=== PATIENT | male | born 1955 | race Caucasian/White ===

== ENCOUNTER 2019-10-26 12:08 | Day surgery (SDC) | payer OTHER, SELFPAY ==
[2019-10-13 14:02] VITALS: BMI 31.8
[2019-10-26] VITALS (11 sets, daily range): BP systolic 99–162; BP diastolic 66–93; PULSE 57–77; RESP 12–18; TEMP 36–36.9; O2SAT 92–96; BMI 31.8
--- NOTE | 2019-10-26 12:02 | DI.RAD.S_ITS ---
PROCEDURE: XR PELVIS 1-2V INDICATIONS: TOTAL RIGHT HIP TECHNIQUE: 1 view of the lower pelvis acquired. COMPARISON: None. FINDINGS: Bones: Patient is status post right total hip arthroplasty, with hardware components in expected positions. The hip joint appears congruent. The visualized bony structures appear intact. Degenerative changes of the left hip are also present. Soft tissues: Overlying postoperative changes are noted. No suspicious soft tissue densities. IMPRESSION: Status post right total hip arthroplasty without acute hardware complication. Expected postoperative changes. Dictated by: Lio Grace M.D. on 10/26/2019 at 17:15 Approved by: Lio Grace M.D. on 10/26/2019 at 17:15
[2019-10-26] MEDS: LACTATED RINGERS 1,000 ML 42 ML IV ×2 (12:41→15:41)
[2019-10-26] MEDS: PREGABALIN 75 MG CAPSULE PO (12:41)
[2019-10-26] MEDS: CELECOXIB 200 MG CAPSULE PO (12:41)
[2019-10-26] MEDS: ACETAMINOPHEN 325 MG TABLET 975 MG PO (12:41)
--- NOTE | 2019-10-26 14:02 | PM.PREOP ---
Pre-operative Note COVID-19 COVID-19 status: Negative Result date/Date tested (Pos, Neg/Pending): 10/24/19 Interval Note History & Physical reviewed/Exam performed by Physician: Yes Changes to H&P: No
[2019-10-26] MEDS: CEFAZOLIN 2 GM/100 ML FROZ.PIGGY IV ×2 (14:37→21:39)
[2019-10-26] MEDS: TRANEXAMIC ACID 1,000 MG VIAL 1000 MG IV ×2 (14:55→16:08)
--- NOTE | 2019-10-26 15:10 | SUR.OPER ---
Lateral on padded OR bed. Gel axillary roll. Arms secured on padded armboard with pillow supporting top arm. Padded hip positioner braces x4 - anterior and posterior chest and pelvis. Additional gel pad used anterior pelvis. Gel pad under bottom leg from knee to foot and secured with tape over sheet.
[2019-10-26] MEDS: KETOROLAC 30 MG/ML VIAL IV (15:18)
[2019-10-26] MEDS: ROPIVACAINE 0.5% PF 5 MG/ML 20ML VIAL 60 ML INJ (15:18)
[2019-10-26] MEDS: MORPHINE 4 MG/ML INJ INJ (15:18)
--- NOTE | 2019-10-26 16:23 | P.OP_ITS ---
Operative Date/Time/Diagnoses Date of procedure: 10/26/19 Time of procedure: 16:23 Pre-op diagnosis: Right hip degenerative joint disease Post-op diagnosis: same Procedure & Clinicians Procedure: Right total hip arthroplasty (CPT code 99051 with assistant hvac mechanic) Same procedure as scheduled: Yes Indications: Patient is an 64-year-old male with severe right hip DJD. The patient has pain with activities and at rest, limited ambulation and activity tolerance, difficulties with ADLs, and failure of conservative treatment. We have discussed the nature of condition, treatment options, risks and benefits, and patient elects to proceed with total hip arthroplasty and gives informed consent. Surgeon: Geoffrey Leonardo Cutter First: Domingo Kolb Anesthesia Type: General and Spinal Operative Notes Closure Type: primary Specimen(s): none sent Prosthetic devices, grafts, tissues, transplants, or devices: Acetabulum: Dacosta [employer] Nephew R3 acetabular component size 54 mm, 6.5 x 25 mm screw x2 Femoral component: Dacosta [employer] Nephew Anthology stem size 9 with high offset Femoral head: 36 mm + 4 Oxinium Estimated Blood Loss (mL): 200 Procedure in detail: After satisfaction induction of anesthetic, and administration of IV antibiotics, the patient was positioned in the lateral decubitus position with all bony prominences well padded and pelvic position secured using a hip sales and leasing consultant positioning device. Right hip and lower extremity prepped and draped in the usual sterile fashion, 1st dose of intravenous tranexamic acid was administered, then a longitudinal incision was created centered over the greater trochanter and carried sharply through the skin and subcutaneous tissues down to the fascia brandi which was divided longitudinally and retracted with a Charnley retractor. External rotators visualize, cut, tagged, and retracted posteriorly, then the capsule was cut in a T-type fashion with the corners tagged and retracted. Hip was dislocated and femoral neck cut made according to preoperative templating. Acetabular retractors then placed, and the acetabular labrum and osteophytes were excised. The acetabulum was then sequentially reamed to 53 mm with an excellent circumferential ream and fit with the trial. The trial component was removed and a permanent size 54 mm Dacosta [employer] Nephew R3 acetabular component was selected, positioned, and impacted with satisfactory position and fixation achieved. Because bone quality was not as high as expected as well as presence of a marginal subchondral cyst in the acetabulum additional fixation of the acetabulum was provided with 2 screws posterosuperior. Excellent fixation was achieved. Permanent liner was then inserted with the elevated lip directed posteriorly. Soft tissue then removed off the lateral femoral neck in the lateral neck was entered using a box osteotome. T-handled reamers placed down the canal followed by sequential broaching to 9 with the final broach left in place for trial reduction which demonstrated fair leg length, range of motion, and stability characteristics with a 36 mm +0 trial ball and standard offset neck. Another trial reduction was performed with a high offset neck Indy yielded and marked improved stability characteristics.. The trial and broach were removed, and a permanent size 9 high offset Dacosta [employer] Nephew Anthology stem was selected and inserted with excellent position and fixation achieved. Another trial reduction yielded the best characteristics with a +4 ball without undue lengthening, so the trial ball was exchanged for a permanent 36 mm + 4 Oxinium ball. The hip was irrigated and reduced and excellent leg length range of motion and stability characteristics were achieved and maintained. Periarticular tissues were infiltrated with ropivacaine, morphine, and Toradol. The hip was copiously irrigated, and the capsule repaired with #2 Ethibond, and the piriformis was repaired back to the greater trochanter with the same. Fascia brandi closed with interrupted #1 Ethibond sutures, and the subcutaneous tissues were closed in 2 layers of 0 Vicryl and 2 0 Vicryl. Skin was closed with mala and sterile dressings applied. Second dose of tranexamic acid was administered intravenously, and the anesthetic was terminated. Complications: none Post-operative Condition: stable Disposition: PACU Plan for aftercare: Patient will be admitted to the acute care [facility], and anticipate discharge on postop day 1 with follow-up in office in 10-14 days. Outpatient physical therapy will be arranged and patient will continue to observe posterior hip precautions. Patient will continue use of postoperative aspirin for DVT prophylaxis.
--- NOTE | 2019-10-26 16:36 | SUR.PHASEI ---
Pt thrashing in bed. Requires 4 RN's to keep him in bed, protect airway and drains
--- NOTE | 2019-10-26 16:46 | SUR.PHASEI ---
Pt awake, not so restless, unable to wiggle toes yet, pedal pulses good bilaterally. Denies pain-
--- NOTE | 2019-10-26 17:14 | SUR.PHASEI ---
Pt transferred in bed by 2 RN's to room 226, report at bedside to RN Traveler Eulalia, changed tegaderm and re taped IV before transit
[2019-10-26] MEDS: LACTATED RINGERS 1,000 ML 125 ML IV (17:53)
[2019-10-26] MEDS: ACETAMINOPHEN 325 MG TABLET 650 MG PO (20:46)
[2019-10-26] MEDS: DOCUSATE 100 MG CAPSULE PO (20:47)
--- NOTE | 2019-10-26 22:44 | PC.NURSE ---
2144 patient bladder scanned due to not voiding since receiving patient from PACU. Patient with 243 mL in bladder. No interventions performed due to post op orders. 2229 patient sat on side of bed, attempted to void in urinal. Patient still unable at this time. Patient states he does not go to the bathroom very often at home. Significant other, Leroy, present at bedside as well. Patient transferred to side of the bed well, with no distress. Patient still reporting no pain. Patient has not required pain medication at all throughout shift. Patient tolerating regular diet well. Surgical site remains clean, dry, intact with CHARLIE dressing in place.
[2019-10-26] MEDS: diphenhydrAMINE 25 MG TABLET 50 MG PO (22:56)
[2019-10-27 00:10] VITALS: BP 118/72; PULSE 74; RESP 16; TEMP 36.1; O2SAT 92
[2019-10-27] MEDS: HYDROCODONE/ACET 5/325 TABLET 2 TAB PO ×3 (01:12→12:42)
[2019-10-27] MEDS: LACTATED RINGERS 1,000 ML 125 ML IV (02:06)
[2019-10-27 04:40] VITALS: BP 125/76; PULSE 77; RESP 20; TEMP 36.8; O2SAT 93
[2019-10-27 05:07] LABS: Hematocrit 38.3 % (41-53); Hemoglobin 13.1 g/dL (13.5-17.5)
[2019-10-27] MEDS: CEFAZOLIN 2 GM/100 ML FROZ.PIGGY IV (06:09)
[2019-10-27 08:00] VITALS: BP 129/71; PULSE 75; RESP 18; TEMP 36.7; O2SAT 96
[2019-10-27] MEDS: ASPIRIN 325 MG TABLET PO (08:27)
[2019-10-27] MEDS: DOCUSATE 100 MG CAPSULE PO (08:27)
[2019-10-27] MEDS: ACETAMINOPHEN 325 MG TABLET 650 MG PO (08:27)
--- NOTE | 2019-10-27 10:15 | PT.IIE ---
Current Diagnoses Unilateral primary osteoarthritis, right hip (10/26/19) Surgery Performed Operation Date: 10/26/19 13:45 Actual Procedures p Total Hip Arthroplasty(Right) - Geoffrey Leonardo MD Surgical History (Last Updated 10/13/19 @ 14:14 by Izabella Maher RN) History of surgery (Acute ~1987) History of vasectomy (Acute ~1990) Hx of hernia repair (Acute) Hx of umbilical hernia repair (Acute) Medical History (Last Updated 10/13/19 @ 14:14 by Izabella Maher RN) CVA (cerebral vascular accident) (Acute 2014) Osteoarthritis (Acute) Physical Therapy Inpatient Evaluation/Re-Eval M1 PT/OT-IP Prior Functional Status Start: 10/27/19 12:51 Freq: NEEDED Status: Active Protocol: Document 10/27/19 10:15 AB (Rec: 10/27/19 13:00 AB [id number]) Medical Review Prior Functional Status Medical History Reviewed Yes Communication able to make needs known Mobility and Gait pt stated that he is independent with all mobilities and ambulation without AD Social History Household Members significant other Living Arrangements Apartment/Condo Number of Floors (Floors) One Floor Number of Stairs To Enter/Railing? 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 PT-IP Current Condition Start: 10/27/19 12:51 Freq: NEEDED Status: Active Protocol: Document 10/27/19 10:15 AB (Rec: 10/27/19 13:00 AB [id number]) Physical Therapy Current Condition Current Condition Evaluation Date 10/27/19 Treatment Diagnosis s/p R SHALONDA posterior approach; difficulty in walking Onset Date 10/26/19 Precautions Posterior Hip Precautions No Hip Flexion > 90 degrees,No Hip Internal Rotation,No Hip Adduction Weight Bearing Status Weight Bearing Status Weight Bear as Tolerated Allowed Weight Bearing Amount (enter % RLE WBAT or #) (%) M3 PT-IP Subjective Start: 10/27/19 12:51 Freq: NEEDED Status: Active Protocol: Document 10/27/19 10:15 AB (Rec: 10/27/19 13:00 AB [id number]) Subjective Physical Therapy Visit Type Type Initial Evaluation Visit Start Time 10:15 Visit Stop Time 11:09 Total Visit Minutes 54 Notes 0 Physical Therapy Visit Comments Patient Comments pt is agreeable to do PT Therapy Pain Assessment Pain When Pain Assessed At Rest Pain Present Pain Present Pain Reported Location Right Hip Intensity 2 Scale Used increases to 5/10 with mobility Pain Management Techniques Apply Cold,Modification of Treatment,Re-positioning, Timing of Activity with Medications M4 PT-IP Mobility and Gait Start: 10/27/19 12:51 Freq: NEEDED Status: Active Protocol: Document 10/27/19 10:15 AB (Rec: 10/27/19 13:00 AB [id number]) PT-Bed Mobility Assessment Supine to Sit Supine to Sit Standby Assistance,1 Person Assistance Sit to Supine Sit to Supine Standby Assistance,1 Person Assistance PT-Transfer Assessment Sit to and From Stand Sit to and from Stand Standby Assistance,Contact Guard Assistance,Use of Upper Extremities Equipment Transfer Assistive Device Gait Belt,Front Wheeled Walker Orthotic/Prosthetic Devices or Brace: No Transfers Transfer Destination Toilet Transfer Technique ambulated using FWW Transfer Ability Level of Assist Standby Assistance,1 Person Assistance,Use of Upper Extremities Comments Mobility Comments reviewed hip precautions with pt. pt was able to recall precautions. completed sit to stand from chair SBA and initial cues. ambulated in room using FWW CGA. completed supine <>sit SBA. completed bed mobility x 2 sets. completed sit to stand from EOB SBA and ambulated in hallway ~ 125 ft SBA using FWW . requested to use the toilet and ambulated using FWW to the toilet SBA. pt wanted to use the toilet for awhile. positioned call light and instructed pt. NAC informed. Gait Assessment Gait Gait Assistance Required: Standby Assistance Distance (Feet) 125 Able to Maintain Weight Bearing Status Yes During Gait Assistive Devices Assistive Device Gait Belt,Front Wheeled Walker Orthotic/Prosthetic Devices or Brace: No Gait Deviations General Gait Pattern Antalgic Factors Limiting Gait Function Factors Limiting Gait Function Decreased Activity Tolerance, Decreased Strength,Limited Range of Motion,Pain,Poor Balance,Poor Safety Awareness PT-Balance Assessment Sitting Balance and Reactions Static Sitting Balance Ability Good Dynamic Sitting Balance Ability Good Standing Balance and Reactions Static Standing Balance Ability Fair Dynamic Standing Balance Ability Fair Device Used FWW M5 PT-IP Objective Assessments Start: 10/27/19 12:51 Freq: NEEDED Status: Active Protocol: Document 10/27/19 10:15 AB (Rec: 10/27/19 13:00 AB [id number]) Orientation Orientation/Cognition Level of Alertness Alert Orientation Name,Age,Birthday,Month,Date, Year,Day of Week,Place, Situation Language Function Ability No Deficits Noted Safety Awareness Understands Safety Issues Memory Description No Deficits Noted Gross Range of Motion Lower Extremity ROM Assessment Within Functional Limits Strength Lower Extremity Strength Assessment Within Functional Limits Coordination Assessment Gross Coordination Gross Coordination WNL Sensation Assessment Sensation Gross Sensation WNL Muscle Tone Muscle Tone WNL Yes M6 PT-IP Treatment Start: 10/27/19 12:51 Freq: NEEDED Status: Active Protocol: Document 10/27/19 10:15 AB (Rec: 10/27/19 13:00 AB [id number]) Physical Therapy Treatment Education Education Provided Precautions,Weight Bearing Status,Post-Op Packet,Safety M7 PT-IP Assessment and Plan Start: 10/27/19 12:51 Freq: NEEDED Status: Active Protocol: Document 10/27/19 10:15 AB (Rec: 10/27/19 13:00 [email or web address]) PT Summary Assessment and Plan Potential Rehabilitation Potential Good Status of Condition at Evaluation Stable Summary Impairments Pain,ROM,Strength,Balance, Coordination,Sensation,Tone, Cognition,Bed Mobility, Transfers,Gait,Activity Tolerance Assessment Summary pt requiring SBA with mobility and plans to go home today with spouse to assist him. pt may go home when medically stable. pt stated that he is set up for outpt PT. Goals Bed Mobility Goal Independent Transfer Goal Independent,Front Wheeled Walker Gait Goal Independent,Front Wheel Walker Gait Distance 200 Days to Meet Goals 5 Frequency of Treatment Frequency Of Treatment Twice a Day Treatment Plan Physical Therapy Treatment Plan Bed Mobility Training,Transfer Training,Gait Training, Therapeutic Exercise,Balance Retraining,Post Op Education, Discharge Planning,Hot or Cold Pack,Neuromuscular Re-ed, Coordination Retraining,Manual Therapy Recommendations To Nursing Amount of Assist Needed 1 Person Assist Discharge Recommendations PT Discharge Recommendations Home with Assistance, Outpatient PT Transportation Needs at Discharge Private Vehicle
[2019-10-27 12:00] VITALS: BP 148/83; PULSE 80; RESP 22; TEMP 37; O2SAT 94
--- NOTE | 2019-10-27 13:20 | PT.IPTN ---
Current Diagnoses Unilateral primary osteoarthritis, right hip (10/26/19) Surgery Performed Operation Date: 10/26/19 13:45 Actual Procedures p Total Hip Arthroplasty(Right) - Geoffrey Leonardo MD Physical Therapy Treatment Note M2 PT-IP Current Condition Start: 10/27/19 12:51 Freq: NEEDED Status: Discharge Protocol: Document 10/27/19 10:15 AB (Rec: 10/27/19 13:00 AB [email or web address]) Physical Therapy Current Condition Current Condition Evaluation Date 10/27/19 Treatment Diagnosis s/p R SHALONDA posterior approach; difficulty in walking Onset Date 10/26/19 Precautions Posterior Hip Precautions No Hip Flexion > 90 degrees,No Hip Internal Rotation,No Hip Adduction Weight Bearing Status Weight Bearing Status Weight Bear as Tolerated Allowed Weight Bearing Amount (enter % RLE WBAT or #) (%) M3 PT-IP Subjective Start: 10/27/19 12:51 Freq: NEEDED Status: Discharge Protocol: Document 10/27/19 13:20 AB (Rec: 10/27/19 [facility]:44 [email or web address] Subjective Physical Therapy Visit Type Type Treatment Note Visit Start Time 13:20 Visit Stop Time 13:29 Total Visit Minutes 9 Number of CHEMICAL PROCESS ANALYST Visits 0 M4 PT-IP Mobility and Gait Start: 10/27/19 12:51 Freq: NEEDED Status: Discharge Protocol: Document 10/27/19 13:20 AB (Rec: 10/27/19 13:44 AB [email or web address]) PT-Transfer Assessment Sit to and From Stand Sit to and from Stand Standby Assistance,Use of Upper Extremities Equipment Transfer Assistive Device Front Wheeled Walker M5 PT-IP Objective Assessments Start: 10/27/19 12:51 Freq: NEEDED Status: Discharge Protocol: Document 10/27/19 10:15 AB (Rec: 10/27/19 13:00 AB [id number]) Orientation Orientation/Cognition Level of Alertness Alert Orientation Name,Age,Birthday,Month,Date, Year,Day of Week,Place, Situation Language Function Ability No Deficits Noted Safety Awareness Understands Safety Issues Memory Description No Deficits Noted Gross Range of Motion Lower Extremity ROM Assessment Within Functional Limits Strength Lower Extremity Strength Assessment Within Functional Limits Coordination Assessment Gross Coordination Gross Coordination WNL Sensation Assessment Sensation Gross Sensation WNL Muscle Tone Muscle Tone WNL Yes M6 PT-IP Treatment Start: 10/27/19 12:51 Freq: NEEDED Status: Discharge Protocol: Document 10/27/19 13:20 AB (Rec: 10/27/19 13:44 [email or web address]) Physical Therapy Treatment Other Treatments Other Treatment Performed Car transfer training conducted. pt required min A to position RLE into the car. educated pt and spouse on techniques and precautions during car transfers. pt and spouse understood. M7 PT-IP Assessment and Plan Start: 10/27/19 12:51 Freq: NEEDED Status: Discharge Protocol: Document 10/27/19 13:20 AB (Rec: 10/27/19 13:44 [email or web address]) PT Summary Assessment and Plan Potential Rehabilitation Potential Good Summary Impairments Pain,ROM,Strength,Balance,Bed Mobility,Transfers,Gait, Activity Tolerance Progress Towards Goals Progressing Toward Goals Assessment Summary pt d/c from the facility. educated and assisted with car transfers. pt's spouse will assist pt at home and is set up for outpt PT. Goals Bed Mobility Goal Independent Transfer Goal Independent,Front Wheeled Walker Gait Goal Independent,Front Wheel Walker Gait Distance 200 Days to Meet Goals 5 Frequency of Treatment Frequency Of Treatment Twice a Day Treatment Plan Physical Therapy Treatment Plan Bed Mobility Training,Transfer Training,Gait Training, Therapeutic Exercise,Balance Retraining,Post Op Education, Discharge Planning,Hot or Cold Pack,Neuromuscular Re-ed, Coordination Retraining,Manual Therapy Recommendations To Nursing Amount of Assist Needed 1 Person Assist Discharge Recommendations PT Discharge Recommendations Home with Assistance, Outpatient PT Transportation Needs at Discharge Private Vehicle
--- NOTE | 2019-10-27 13:34 | PC.NURSE ---
Pt dc'd to home per MD order. Provided d/c packet and educational materials. Reviewed education re dx, meds, when to seek emergency medical tx, need for f/u appt, activity restrictions, medication side effects. Provided pt with rx and instructed on need to fill. Pt and partner verbalize understanding. Pt was escorted to exit by FRONT LINE SUPERVISOR in no distress and assisted into POV by PT per pt request to practice getting into and out of the car. All belongings with pt.
--- NOTE | 2019-10-27 14:42 | CM.IDA ---
Initial DCP Assessment Note Pt is a 64 yo male, resident of [place], now POD#1 from Rt hip surgery w/ Dr Leonardo PCP: Isiah Holman Payer: Dilip Reviewed chart, pt discussed in multidisciplinary rounds this morning. Therapy has cleared pt for return home w/SO to assist and pt has planned for home, DC order from Ortho has already been initiated this morning. No needs expected from DC planning team although will remain available in case this changes today. ELIDA Guerra
== END 2019-10-27 13:30 | disposition home or self-care (01) ==
LOC: OR 12:15 → ICU 15:26
PROVIDERS: PCP Family Medicine; Referring Provider Orthopaedic Surgery; Visit Provider Orthopaedic Surgery
PROC: 0SR90JZ Replacement of Right Hip Joint with Synthetic Substitute, Open Approach (ICD-10-PCS; CPT 27130; principal; 2019-10-26 13:45)
DX: M16.11 Unilateral primary osteoarthritis, right hip (principal)
CPT/HCPCS: 27130; 36415; 72170; 85014; 85018; 87797; 97161; 97530; C1776; J0690; J1885; J2250; J2270; J2274; J2405; J2704; J3010